=== PATIENT | male | born 1970 | race Caucasian/White ===

== ENCOUNTER 2024-02-20 13:06 | Outpatient (AMB) | payer MEDICAID, SELFPAY ==
--- NOTE | 2024-02-20 13:08 | A.OFFVIS_ITS ---
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 Patient has history of Bilateral TKA with Dr. Jarvis. Patient reports that his right knee is the most painful, He was walking when he stepped in a deep hole the was not filled. He hyperextended the right knee when this happened. He has significant pain in the knee with any lateral/medial movements and pivoting. He feels that the knee has become loose and feels like it is going to like around. Patient reports that he has back problems but does not yet have a provider for this yet. 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 He states he was doing okay until last year when he stepped into a hole and twisted his right knee. Since then he has had sharp right knee pain with twisting activities. He describes being unable to lift his right leg when he is lying in bed both on either side. His pain localizes mostly to the lateral and posterolateral aspect of the right knee. He denies fevers and chills. He denies effusion. [facility] Surgical History (Updated 03/06/24 @ 13:43 by Prabhu Baez MD) History of elbow surgery History of left knee replacement Status post right knee replacement Physical Exam Vital Signs: BMI result Body Mass Index 32.7 Extrem Other: Well-healed incision bilaterally. He does have a trace effusion on the right none on the left. His quad is atrophied on the right compared to the left. He has 1+ varus and valgus instability bilaterally to minus anterior posterior translation bilaterally. He essentially as a posterior over test on his right this is what he describes as painful when he is lying on his back and he has tightness over the iliotibial band. Assessment & Plan Assessment & Plan (1) History of left knee replacement: Code(s): Z96.652 - Presence of left artificial knee joint Category: Surgical Plan: (2) Status post right knee replacement: Code(s): Z96.651 - Presence of right artificial knee joint Category: Surgical Plan: This is a 53-year-old gentleman status post bilateral knee replacement. His right knee has been bothering him laterally since he stepped in a hole proximally a year ago. Denies fevers and chills. He does not have his x-rays with him and I have not seen the operative reports. At this time, there is no evidence of infection or loosening but I recommend he follow up in 3 weeks. At that time I will review his records and we will obtain more recent radiographs. He understands this and is amenable to this plan. Orders: Orders XR knee LT 3V 02/20/24 M25.562 - Pain in left knee PT Evaluation and Treatment 02/20/24 Z96.653 - Presence of artificial knee joint, bilateral XR knee RT 3V 02/20/24 M25.561 - Pain in right knee Coding Level of Care Code New Pt Level 3 (29215) Diagnoses History of left knee replacement Z96.652 Status post right knee replacement Z96.651
[2024-02-20 13:10] VITALS: BMI 32.7
== END 2024-02-20 13:58 | disposition home or self-care (01) ==
PROVIDERS: PCP Nurse Practitioner; Visit Provider Orthopaedic Surgery
DX: M25.561 Pain in right knee (principal); Z96.653 Presence of artificial knee joint, bilateral
CPT/HCPCS: 99203

== ENCOUNTER → 2024-02-20 13:06 | Outpatient (BNVA) | payer MEDICAID, SELFPAY | PROVIDERS: PCP Nurse Practitioner; Visit Provider Orthopaedic Surgery | DX: M25.561 Pain in right knee (principal); M25.562 Pain in left knee; Z96.653 Presence of artificial knee joint, bilateral | CPT/HCPCS: 99202 ==

== ENCOUNTER 2024-03-15 13:01 | Outpatient (REF) | payer MEDICAID, SELFPAY | END 2024-03-15 13:02 | disposition home or self-care (01) | LOC: HO.HOSX 13:01 | PROVIDERS: Visit Provider Orthopaedic Surgery | DX: Z13.89 Encounter for screening for other disorder (principal) ==